=== PATIENT | female | born 1995 | race Caucasian/White ===

== ENCOUNTER → 2018-12-02 | Outpatient (CLI) | payer SELFPAY ==
--- NOTE | 2018-12-02 16:26 | RAD ---
OB ultrasound less than 14 weeks to include transabdominal and transvaginal imaging 12/02/2018 CLINICAL HISTORY: First trimester with vaginal bleeding and passage of clots for 3 days. TECHNIQUE: Using the distended urinary bladder as a sonographic window, a real-time ultrasound examination of the pelvis was performed. Additionally in an attempt to better evaluate the uterus and adnexa, a transvaginal ultrasound study was performed. Multiple images were obtained. FINDINGS: A gestational sac is seen within the endometrial canal within the body/fundus of the uterus. Within this gestational sac an embryonic pole is seen. The CRL of this embryonic pole measures 1.98 cm. This corresponds to an estimated gestational age by ultrasound of 8 weeks 4 days plus or minus a standard deviation of 7 days. No embryonic cardiac activity is seen. These findings consistent with embryonic demise. A heterogeneous area is seen immediately inferior to the gestational sac which measures 4.5 cm in greatest diameter. This is consistent with an area of subchorionic hemorrhage. The uterus is otherwise within normal limits. Both ovaries are within normal limits in size and echogenicity. The right ovary measures 3.9 x 2.0 x 2.8 cm in size. Left ovary measures 3.7 x 2.3 x 3.3 cm in size. No adnexal mass is seen. No free fluid is noted. IMPRESSION: Findings consistent with embryonic demise. Electronically signed by: Salvador Garzon MD (12/02/2018 4:23 PM) [id number]
== END | disposition home or self-care (01) ==
LOC: US 13:35
PROVIDERS: ATTEND Physician Assistant
DX: O20.9 Hemorrhage in early pregnancy, unspecified (principal); Z3A.08 8 weeks gestation of pregnancy
CPT/HCPCS: 76801; 76817